=== PATIENT | female | born 2000 | race Caucasian/White ===

== ENCOUNTER 2022-01-25 06:18 | Inpatient (IN) ==
[2022-01-25] MEDS ORDERED: BETADINE SOLN ONE (06:33)
[2022-01-25] MEDS ORDERED: D5 1/2 NS 1,000 ML 1,000 ML IV ONE (06:33)
[2022-01-25] MEDS ORDERED: PITOCIN ONE (06:33)
[2022-01-25] MEDS ORDERED: D5 1/2 NS 1,000 mL + PITOCIN 20 UNITS/L IV 20 UNITS/1,000 ML BAG IV ONE (06:34)
[2022-01-25] MEDS ORDERED: D5 LR + PITOCIN 10 UNITS/L 10 UNITS/1,000 ML BAG IV ONE (06:34)
--- NOTE | 2022-01-25 07:02 | DR.OB ---
OB Quick Note - Assessment/Plan Assessment/Plan: L&D 01/25/22 at 6:50am S-No complaint. O-Afebrile,VSS NVQ=614 with good LTV, +accel, no decel. CTX=mild uterine irritability CVX=2cm/50%/-1/VTX AROM with clear fluid. IUPC and FSE placed. A-IUP at 39 1/7 weeks for induction P-Begin pitocin induction Anticipate
[2022-01-25] MEDS ORDERED: PITOCIN IVP ONE (07:05)
[2022-01-25] MEDS ORDERED: REGLAN INJ 10 MG VIAL IVP PRN (07:05)
[2022-01-25] MEDS ORDERED: NUBAIN INJ 200 MG VIAL MULTIDOSE IVP PRN (07:05)
[2022-01-25] MEDS ORDERED: D5 LR + PITOCIN 10 UNITS/L 10 UNITS/1,000 ML BAG IV PRN (07:05)
[2022-01-25] MEDS ORDERED: PHENERGAN INJ 25 MG IM PRN ×2 (07:05→15:04)
[2022-01-25] MEDS ORDERED: MORPHINE SULFATE INJ 2 MG INJ IVP PRN (07:05)
[2022-01-25] MEDS ORDERED: D5 1/2 NS 1,000 ML 1,000 ML IV SCH (07:05)
[2022-01-25] MEDS ORDERED: LR 1,000 ML IV 1,000 ML IV ONE (07:53)
[2022-01-25 07:57] LABS: ALANINE AMINOTRANSFERASE 84 Units/L (12-78); ALBUMIN 2.5 g/dL (3.4-5.0); ALKALINE PHOSPHATASE 161 Units/L (46-116); ASPARTATE AMINO TRANSFERASE 78 Units/L (15-37); BLOOD UREA NITROGEN 10 mg/dL (7-18); CALCIUM 10.1 mg/dL (8.5-10.1); CARBON DIOXIDE 20.8 mmol/L (21-32); CHLORIDE 107 mmol/L (98-107); COR CA(FOR HYPOALB) 11.3 mg/dL (8.5-10.1); CREATININE 0.67 mg/dL (0.55-1.02); SODIUM 139 mmol/L (136-145); TOTAL PROTEIN 6.6 g/dL (6.4-8.2); eGFR NON BLACK RACES > 60 (>60)
[2022-01-25 08:00] LABS: BASOPHILS % (AUTO) 0.3 % (0.2-1.0); EOSINOPHILS # (AUTO) 0.1 x10^3/uL (0.0-0.2); EOSINOPHILS % (AUTO) 0.6 % (0.9-2.9); HEMATOCRIT 31.8 % (36.0-47.0); HEMOGLOBIN 11.2 g/dL (12.0-16.0); LYMPHOCYTES # (AUTO) 1.8 X10^3/uL (1.3-2.9); MEAN CORPUSCULAR HGB CONC 35.3 g/dL (33.0-35.0); MEAN CORPUSCULAR VOLUME 87.7 fL (80.0-100.0); MONOCYTES # (AUTO) 0.8 x10^3/uL (0.3-0.8); MONOCYTES % (AUTO) 5.5 % (0.0-13.0); NEUTROPHILS # (AUTO) 12.3 x10^3/uL (2.2-4.8); NEUTROPHILS % (AUTO) 81.6 % (42.0-75.0); RED BLOOD COUNT 3.63 X10^6/uL (3.5-5.4); RED CELL DISTRIBUTION WIDTH 13.6 % (11.6-16.5); WHITE BLOOD COUNT 15.1 X10^3/uL (3.6-10.0)
[2022-01-25] MEDS ORDERED: ZOFRAN INJ 4 MG VIAL ONE (08:26)
[2022-01-25] MEDS: FENTANYL VIAL INJ 100 mcg ONE ×2 (09:00→10:15)
[2022-01-25] MEDS: NAROPIN EPIDURAL 0.2% 100 ML ONE ×2 (09:00→10:15)
[2022-01-25 09:44] LABS: BILIRUBIN,URINE NEGATIVE (NEGATIVE); BLOOD/HEMOGLOBIN,URINE 1+ (NEGATIVE); GLUCOSE, URINE NEGATIVE (NEGATIVE); KETONES,URINE NEGATIVE (NEGATIVE); LEUKOCYTE ESTERASE ,URINE NEGATIVE (NEGATIVE); NITRITES,URINE NEGATIVE (NEGATIVE); PROTEIN,URINE 1+ (NEGATIVE); UROBILINOGEN,URINE NORMAL (NORMAL)
[2022-01-25 09:45] LABS: APPEARANCE,URINE CLEAR (CLEAR); COLOR,URINE YELLOW (YELLOW)
[2022-01-25 10:03] LABS: BACTERIA,URINE NEGATIVE /HPF (NEGATIVE); SQUAMOUS EPITHELIAL CELL,UR RARE /HPF (NEGATIVE)
[2022-01-25] MEDS: D5 1/2 NS 1,000 ML 1,000 ML with PITOCIN 20 UNITS IV SCH ×2 (14:54)
[2022-01-25] MEDS ORDERED: MOTRIN TAB 800 MG PO PRN (15:04)
[2022-01-25] MEDS ORDERED: AMBIEN PO PRN (16:02)
[2022-01-25] MEDS ORDERED: MILK OF MAGNESIA PO PRN (16:02)
[2022-01-25] MEDS ORDERED: DERMOPLAST PAIN RELIEF SPRAY TOP PRN (16:02)
[2022-01-25] MEDS ORDERED: ADACEL or BOOSTRIX TDaP VACCINE IM ONE (16:02)
--- NOTE | 2022-01-25 16:31 | DR.OB ---
OB Quick Note - Assessment/Plan Assessment/Plan: Delivery Note GRAZING AIDE 01/25 22 at 14:48 Patient complete and pushing. Head delivered over intact perineum. No nuchal cord. Nose and mouth bulb suctioned. Body delivered over intact perineum. Late meconium noted. Cord clamped x 2 and cut. handed to attendant. Cord sent for gases. Placenta delivered spontaneously / intact / 3 vessel cord. No CVX / vaginal / perineal tears noted. Viable female infant, VTX/OA, wt=6'13" and 8/9, stable to NBN. Mother stable to RR. LDT=[id number].
[2022-01-26] MEDS: D5 1/2 NS 1,000 ML 1,000 ML with PITOCIN 20 UNITS IV SCH ×2 (01:59)
[2022-01-26 05:23] LABS: HEMOGLOBIN 8.9 g/dL (12.0-16.0)
[2022-01-26] MEDS ORDERED: PROTONIX TAB 40 MG PO SCH (09:00)
[2022-01-26] MEDS ORDERED: PRENATAL PLUS PO SCH (09:00)
[2022-01-26] MEDS ORDERED: FERROUS GLUCONATE PO SCH (17:00)
[2022-01-26 17:32] VITALS: BP 125/66
== END 2022-01-26 16:25 | disposition home or self-care (01) | DRG 807 ==
LOC: LD 06:18 → MED/SURG 16:20
PROVIDERS: ADMIT Specialist; ATTEND Specialist
DX: R87.619 Unspecified abnormal cytological findings in specimens from cervix uteri; O34.40 Maternal care for other abnormalities of cervix, unspecified trimester; Z37.0 Single live birth; O99.891 Other specified diseases and conditions complicating pregnancy; Z3A.39 39 weeks gestation of pregnancy; Z20.822 Contact with and (suspected) exposure to COVID-19; O99.613 Diseases of the digestive system complicating pregnancy, third trimester; K21.9 Gastro-esophageal reflux disease without esophagitis; Z01.812 Encounter for preprocedural laboratory examination